=== PATIENT | female | born 1960 | race Caucasian/White ===

== ENCOUNTER 2016-08-16 10:16 | Day surgery (SDC) | payer OTHER ==
[~2016-08-16] VITALS: Ht 157.5 cm; Wt 110.0 kg
[~2016-08-16 10:16] MED LIST: ALBU8.5H2 IH; ASPI-973 PO; CETI5TAB28 PO; CLOB15CR3 TOP; CYCL5TAB PO; GLBR5T PO; HYDR25TA4 PO; LISI-567 PO; LORA10CA PO; Lactated Ringer's 1,000 ML IV ONE; Lactated Ringer's 1,000 ML IV SCH; METF1000 PO; MOME13HF2 IH; MetoCLOpramide 5 mg/mL 2 mL Inj IVPUSH PRN; NIAC10002 PO; Ondansetron 2 mg/mL 2 mL Inj IVPUSH PRN; SIMV40TA5 PO; TIOT18CA3 IH; [UNRECOGNIZED DRUG - OTHER] TP
[2016-08-16] MEDS ORDERED: Propofol 10,000 mCg/mL 20 mL Inj ONE (10:17)
[2016-08-16 10:42] VITALS: BP 101/62; PULSE 78; O2SAT 87
--- NOTE | 2016-08-16 11:08 | PCM.HPANE ---
Patient Data Surgeon Admitting Provider: Attending Provider:Spenser Atkins MD Primary Care Physician:Karie Pete Other Provider:Suman Jacobsen Anesthesia Reason for Visit Iron Deficiency Anemia Ht/WT & BMI Height (Feet): 5 Height (Inches): 2.00 Weight (Kilograms): 110.000 Body Mass Index 44.00 Allergies Coded Allergies: No Known Allergies (Unverified , 08/14/16) Past Anesthesia History Anesthesia History: Denies:: Anesthesia Reactions, Fam Anesthesia Reaction, Fam Malignant Hypertherm, Malignant Hyperthermia Diabetes History Hx Diabetes?: Yes Type of Diabetes: Type II Glycemic Control: Oral Medication Current Bedside Blood Glucose: 118 MRSA MRSA: No Medications Blood Thinner: Aspirin Last Dose Blood Thinner: Aug 14, 2016 Home Meds Incl Beta Noreen: No Reported Medications Loratadine (Claritin)10 Mg Gyascuo38 Mg PO DAILY Ref 0 08/14/16 Clobetasol Propionate/Emoll (Clobetasol Emollient 0.05% Crm)15 Gm Cream..g.1 Appl TOP BID #1 TUBE 08/14/16 Metformin (Glucophage)1,000 Mg Tablet1,000 Mg PO BID Ref 0 10/11/15 Cetirizine 5 Mg Ixwelc98 Mg PO HS PRN seasonal allergies Ref 0 10/11/15 Aspirin 81 Mg Oteviy31 Mg PO DAILY Ref 0 10/11/15 Simvastatin 40 Mg Owotmn27 Mg PO HS 30 Days Ref 0 08/21/15 Mometasone/Formoterol (Dulera 100 Mcg/5 Mcg Inhaler)13 Gm Hfa.aer.ad13 Gm IH BID 08/21/15 Cyclobenzaprine 5 Mg Tablet5-10 Mg PO TID PRN Spasm 08/21/15 Albuterol HFA (Proair HFA)8.5 Gm Hfa.aer.ad2 Puffs IH Q4 PRN For Shortness of Breath #1 INHALER 06/17/14 Hydrochlorothiazide 25 Mg Wdbfle26 Mg PO DAILY 30 Days Ref 0 06/17/14 Lisinopril 20 Mg Ruszov97 Mg PO DAILY 30 Days Ref 0 06/17/14 Glyburide 5 Mg Tab5 Mg PO AM 30 Days Ref 0 06/17/14 Tiotropium Mingus (Spiriva)18 Mcg Cap.w.dev18 Mcg IH DAILY #1 PKG Ref 0 06/17/14 Niacin 1,000 Mg Tablet.er1,000 Mg PO DAILY 06/17/14 Discontinued Reported Medications [Nicotene Patch] No Conflict Check1 Patch TP PRN 08/21/15 History History of ENT Problems?: Yes HEENT History: Positive for:: Sinus Problem (seasonal allergies) Denies:: Dysphagia Hearing Problem Hx of Heart Problems?: Yes Cardiovascular History: Positive for:: Congestive Heart Failure (HX OF) Edema (LEGS) Hypertension (and hyperlipidemia) Denies:: AICD Atrial Fibrillation Chest Pain Pacemaker Valvular Heart Disease Hx of Respiratory Problem?: Yes Respiratory History: Positive for:: Asthma COPD (HAS INHALERS USED TODAY) Dyspnea (BOYKIN) Oxygen Administration (O2 PRN) Use of C-PAP Machine (DUSTIN+-NOT CURRENTLY USING CPAP.) Denies:: Cough Hemoptysis Pneumonia Tuberculosis Hx Neurologic Problems?: Yes Neurological History: Denies:: CVA Hx of GI Problems?: No Gastrointestinal History: Denies:: Cirrhosis Diverticulitis Gall Bladder Disease Gastroesphageal Reflux Hiatal Hernia Liver Disease Hx of Problems?: No Female Hx: Denies:: Currently Skin History: Positive for:: History Skin Disorders? (S/P EXC RT AXILLARY MASS (LIPOMA)) Denies:: Pressure Ulcers Hx Musculoskeletal Problems?: Yes Musculoskeletal History: Positive for:: Musculoskeletal Trauma (left carpal tunnel current admission problem, right CTR done08/2015) Denies:: Back Injury (C/OF BACK PAIN) Fibromyalgia Hx of Psycho/Social Problems?: Yes Psycho Social History: Positive for:: Hx Depression (NO MEDS) Denies:: Anxiety Hx Surgeries?: Yes (rBILAT CTR, C SECTIONS, LUMP RIGHT DELTOID) Hx Any Other Health Problems?: Yes Other History: Denies:: Cancer Endocrine Disease Hospitalization Thyroid Disease History Blood Transfusions: Denies:: Blood Transfusions Hx Diabetes: YesBedside Blood Glucose: 118 Hx Alcohol Use: Yes (ONCE TO TWICE A YEAR)Hx Substance Use: No Smoking Status: Current Every Day Smoker Have You Smoked inLast 12 mo: Yes Stop/Bang Treated for Sleep Apnea?: No Do You Have a CPAP Machine?: No (DOES NOT USE) S-Snoring: Do You Snore Loudly: Yes T-Tired: feel tired, fatigued: Yes O-Obsered: Observed not breath: No P-Blood Pressure: treated: Yes B- Body Mass Index > 35 kg/m2: Yes A- Age over 50: Yes N- Neck Large Circumference: Yes G- Gender Male: No DUSTIN Total Score: 6 DUSTIN Risk Assessment: High Risk, =/>3 Yes DUSTIN Category 2: Yes Risk Assessment Category Category 1A: Patient has history of documented sleep apnea, and HAS NOT received any narcotic, sedative or anesthesia administration during this stay. Category 1B: Patient has history of documented sleep apnea, and HAS received any narcotic , sedative or anesthesia administration during this stay Category 2: Patient has SUSPECTED Obstructive Sleep Apnea, and HAS received any narcotic , sedative or anesthesia administration during this stay. Category 3: Patient has SUSPECTED Obstructive Sleep Apnea and HAS NOT received narcotic, sedative or anesthesia administration during this stay. Category 4: Outpatient in Procedural Areas with known sleep apnea or who screen positive for High Risk via the STOP/BANG questionnaire. Exam Exam Vital Signs Vital Signs Date Time Temp Pulse Resp B/P Pulse Ox O2 Delivery O2 Flow Rate FiO2 08/16/16 10:42 36.8 78 101/62 87 Room Air General Appearance: Oriented X3 HEENT/AIRWAY: MP 3 Lungs: Diminished Heart: Regular Rate/Rhythm Meds/Labs/Diagnostics Bedside Blood Glucose: 118 Plan Impression Patient chart reviewed, patient interviewed and anesthestic plan with risks, benefits, and alternatives discussed, and informed consent obtained. NPO Status: [id number] water ASA Physical Status: ASA4 Life Threatening Anesthetic Plan: MAC Bene/Risks/Altern/Consents: Yes HP Complete Prior to Induction: Yes Justin Gasca MD Aug 16, 2016 11:08
[2016-08-16 11:45] VITALS: BP 97/67; PULSE 86; RESP 15; O2SAT 90
--- NOTE | 2016-08-16 11:51 | PCM.ANEP1 ---
Post Anesthesia Phase 1 PACU Phase 1 Assessment Vital Signs Vital Signs Date Time Temp Pulse Resp B/P Pulse Ox O2 Delivery O2 Flow Rate FiO2 08/16/16 11:45 86 15 97/67 90 Room Air 08/16/16 10:42 36.8 78 101/62 87 Room Air Anesthetic Administered: MAC Level of Alertness: Awake, talking Pain: No Nausea or Vomiting: No Oxygen Delivery: Room Air Lungs: Diminished Justin Gasca MD Aug 16, 2016 11:51
--- NOTE | 2016-08-16 11:51 | PCM.ANEP2 ---
Post Anesthesia Evaluation ASA/CMS Post Anesthesia VS in Patient's Normal Range?: Yes Resp Stable; Airway Patent?: Yes CV Function & Hydration Stable: Yes Mental Status Recovered?: Yes Pain control Satisfactory?: Yes N/V Control Satisfactory?: Yes Justin Gasca MD Aug 16, 2016 11:51
[2016-08-16 11:54] VITALS: BP 116/75; PULSE 83; RESP 15; O2SAT 91
[2016-08-16 12:04] VITALS: BP 92/59; PULSE 83; RESP 15; O2SAT 89
--- NOTE | 2016-08-16 12:06 | ENDO ---
[address] [address] ENDOSCOPY PROCEDURE PATIENT: JUDIE PENNINGTON : 1960 MR#: [id number] ADMIT: 08/16/2016 JOB ID: [id number] OPERATION: 1. Esophagogastroduodenoscopy with biopsy. 2. Colonoscopy with snare polypectomy x2. PREOPERATIVE DIAGNOSIS: Iron deficiency anemia. POSTOPERATIVE DIAGNOSIS: 1. Normal upper endoscopy, status post biopsy. 2. Two sigmoid polyps measuring 8 mm in size each, removed by hot snare polypectomy. ANESTHESIA: Monitored anesthesia care. COMPLICATIONS: None. BLOOD LOSS: Minimal. DESCRIPTION OF PROCEDURE: After the risks and benefits were explained to the patient, informed consent was obtained. After anesthesia was administered, the upper endoscope was inserted into the mouth, intubating the esophagus, stomach, and second portion of the duodenum and the mucosa carefully examined. After the procedure was done, the scope was withdrawn and the procedure terminated. The colonoscope was inserted per rectum to the cecum and the mucosa carefully examined. Prep of the patient was excellent. After the scope was done, the scope was withdrawn and the procedure terminated. FINDINGS: Upon inspection of the esophagus, the esophagus was normal, without masses, ulcers, or lesions. Z-line located 40 cm from the incisors. Upon entering the stomach, the stomach was normal without masses, ulcers, or lesions. Retroflexion was normal. Duodenal bulb, first and second portion normal. Biopsies taken of the duodenum. Upon inspection of the anus, no masses, hemorrhoids, ulcers, or fissures that were seen. Throughout the entire examination there was two sigmoid polyps measuring 8 mm each, removed by hot snare polypectomy. No other masses, ulcers, or lesions were seen. Retroflexion was normal. IMPRESSION: 1. Normal upper endoscopy, status post biopsy. 2. Two sigmoid polyps measuring 8 mm each, removed by hot snare polypectomy. RECOMMENDATION: Await pathology results. If tubular adenoma, then next colonoscopy in five years.
--- NOTE | 2016-08-19 15:29 | PATH ---
SURGICAL PATHOLOGY Attending Physician:Spenser Atkins MD CASE STATUS: Signed Out PATIENT NAME: JUDIE PENNINGTON PID: [id number] : 1960 DATE COLLECTED:08/16/2016 20:19 SPECIMEN: 1: Duodenum, Biopsy 2: Colon, Biopsy CLINICAL HISTORY: 1). DUODENUM BIOPSIES 2). SIGMOID COLON POLYP FINAL DIAGNOSIS: 1.DUODENUM BIOPSIES: DUODENAL MUCOSA WITH NO DIAGNOSTIC ALTERATIONS. Negative for active inflammation, features of sprue, dysplasia, and malignancy. 2.SIGMOID COLON POLYP: TUBULAR ADENOMA. ICD10 CODE D12.5 GROSS DESCRIPTION: The specimen is received in two formalin filled containers labeled with the patient's name. 1). The specimen is sublabeled "duodenum" and consists of 2 portions of tissue which aggregate to 0.5 x 0.3 x 0.2 CM. The specimen is entirely submitted in cassette 1A. 2). The specimen is sublabeled "sigmoid colon polyp" and consists of 2 portions of tissue which aggregate to 0.6 0.6 0.5 CM. The specimen is entirely submitted in cassette 2A. 08/16/2016 [facility] MICRO DESCRIPTION: See diagnosis. ICD-9 CODES: CPT CODES: 1: 35682 2: 46391 Electronically Signed Out Betty Orozco MD [facility] Pathology [facility] [address], [place] [address] Technical component performed at [facility], [facility] [address], [place], [address]
== END 2016-08-16 23:59 | disposition home or self-care (01) ==
LOC: END 10:16
PROVIDERS: ATTEND Internal Medicine Gastroenterology
DX: D12.5 Benign neoplasm of sigmoid colon (principal); D50.9 Iron deficiency anemia, unspecified; I10 Essential (primary) hypertension; G47.33 Obstructive sleep apnea (adult) (pediatric); E11.51 Type 2 diabetes mellitus with diabetic peripheral angiopathy without gangrene; I73.9 Peripheral vascular disease, unspecified; E78.5 Hyperlipidemia, unspecified; J44.9 Chronic obstructive pulmonary disease, unspecified; J45.909 Unspecified asthma, uncomplicated; E66.01 Morbid (severe) obesity due to excess calories; F17.210 Nicotine dependence, cigarettes, uncomplicated; Z79.82 Long term (current) use of aspirin; Z79.51 Long term (current) use of inhaled steroids; Z79.84 Long term (current) use of oral hypoglycemic drugs
CPT/HCPCS: 43239; 45385; 88305; J7120